=== PATIENT | male | born 1955 | race American Indian/Alaskan Native ===

== ENCOUNTER 2019-03-10 06:20 | Day surgery (SDC) | payer OTHER ==
[2019-03-10] MEDS ORDERED: SODIUM CHLORIDE 0.9% 1000 ML 1,000 ML ONE (06:42)
[2019-03-10] MEDS ORDERED: SODIUM CHLORIDE 0.9% 1000 ML 1,000 ML IV SCH (06:45)
[2019-03-10] MEDS ORDERED: LIDOCAINE MPF (2%) 20 MG/1 ML VIAL 5 ML ONE (07:00)
--- NOTE | 2019-03-10 07:32 | Anesthesia Consultation ---
Anesthesia Consult and Med Hx Date of service: 03/10/19 - Airway Anesthetic Teeth Evaluation: Partials ROM Head & Neck: Adequate Mental/Hyoid Distance: Adequate Mallampati Class: Class II Intubation Access Assessment: Probably Good - Pre-Operative Health Status ASA Pre-Surgery Classification: ASA3 Proposed Anesthetic Plan: MAC - Pulmonary Hx Smoking: No Hx Asthma: No Hx Respiratory Symptoms: No SOB: No COPD: No Home Oxygen Therapy: No Hx Pneumonia: No Hx Sleep Apnea: No - Cardiovascular System Hx Hypertension: Yes Hx Coronary Artery Disease: Yes (stents placed in 2017) Hx Heart Attack/AMI: No Hx Angina: No Hx Percutaneous Transluminal Coronary Angioplasty (PTCA): No Hx Cardia Arrhythmia: No Hx Pacemaker: No Hx Internal Defibrillator: No Hx Valvular Heart Disease: No Hx Heart Murmur: No Hx Peripheral Vascular Disease: No - Central Nervous System Hx Neuromuscular Disorder: No Hx Seizures: No CVA: No Hx Back Pain: No Hx Psychiatric Problems: No - Gastrointestinal Hx Ulcer: No Hx Gastroesophageal Reflux Disease: No - Endocrine Hx Renal Disease: No Hx End Stage Renal Disease: No Hx Cirrhosis: No Hx Liver Disease: No Hx Insulin Dependent Diabetes: No Hx Non-Insulin Dependent Diabetes: No Hx Thyroid Disease: No Hx Hypothyroidism: No Hx Hyperthyroidism: No - Hematic Hx Anemia: No Hx Sickle Cell Disease: No - Other Systems Hx Alcohol Use: No Hx Substance Use: No Hx Cancer: Yes (prostate ca in the past) Hx Obesity: Yes
--- NOTE | 2019-03-10 07:33 | Anesthesia Day of Surgery ---
Anesthesia Day of Surgery - Day of Surgery Patient Examined: Yes Patient H&P Reviewed: Yes Patient is NPO: Yes Cardiac Clearance: Yes
[2019-03-10] MEDS ORDERED: PROPOFOL 200 MG/20 ML VIAL IV ONE ×2 (07:37)
--- NOTE | 2019-03-10 08:41 | Short Stay Summary ---
Short Stay Documentation - Allergies and Medications Current Medications: Allergies No Known Allergies Allergy (Unverified 03/10/19 06:20) Home Medications Medication Instructions Recorded Confirmed Last Taken Type Aspirin EC [Halfprin EC] 81 mg PO QDAY 03/10/19 03/10/19 03/05/19 11:00 History Lisinopril [Zestril TAB] 40 mg PO QDAY 03/10/19 03/10/19 03/10/19 04:30 History Metoprolol Xl [Metoprolol 25 mg PO DAILY 03/10/19 03/10/19 03/10/19 04:30 History SUCCINATE ER TAB] NIFEdipine [Nifedipine ER] 90 mg PO DAILY 03/10/19 03/10/19 03/10/19 04:30 History Rosuvastatin Calcium 40 mg PO DAILY 03/10/19 03/10/19 03/08/19 20:00 History Active Medications Sodium Chloride (Nacl 0.9% 1000 Ml) 1,000 mls @ 50 mls/hr IV DIRECT ROSS Last Admin: 03/10/19 07:46 Dose: 50 mls/hr Documented by: - Brief post op/procedure progress note Date of procedure: 03/10/19 Pre-op diagnosis: Colon cancer screening 2. Anemia Post-op diagnosis: same (EGD: 1. GERD 2. Gastritis 3. Prominent gastric fold 1. Colonoscopy: 1 Diverticulosis 2. Hemorrhoids internal) Procedure: 1. EGD with biopsy 2. Colonoscopy Anesthesia: MAC Findings: as above Surgeon: ELIANE CHA Estimated blood loss: none Pathology: list (1. Duodenum 2. Antrum 3. Body of stomach) Specimen disposition: to lab Condition: stable - Disposition Condition at discharge: Stable Disposition: DC-[id number] TO HOME OR SELFCARE Short Stay Discharge Plan Activity: no restrictions Weight Bearing Status: Full Weight Bearing Diet: regular, low salt Follow up with: LILIANA MCKEON MD [Primary Care Provider] - 7 Days
[2019-03-10 09:08] VITALS: BP 121/67
--- NOTE | 2019-03-10 10:54 | Post Anesthesia Evaluation ---
- Post Anesthesia Evaluation Patient Participated: Yes Airway Patent: Yes Stable Respiratory Function: Yes Nausea/Vomiting: No Temp > 96.8F: Yes Pain Manageable: Yes Adequeate Hydration: Yes Anesthesia Complications: No
== END 2019-03-10 06:21 | disposition home or self-care (01) ==
LOC: GIO 06:20
PROVIDERS: ATTEND Internal Medicine Gastroenterology
DX: D64.9 Anemia, unspecified (principal); K57.30 Diverticulosis of large intestine without perforation or abscess without bleeding; K64.0 First degree hemorrhoids; K29.50 Unspecified chronic gastritis without bleeding; K21.9 Gastro-esophageal reflux disease without esophagitis; K29.60 Other gastritis without bleeding; K29.80 Duodenitis without bleeding; I25.10 Atherosclerotic heart disease of native coronary artery without angina pectoris; I10 Essential (primary) hypertension; E66.9 Obesity, unspecified; Z68.31 Body mass index [BMI] 31.0-31.9, adult; Z79.899 Other long term (current) drug therapy; Z79.82 Long term (current) use of aspirin; Z95.5 Presence of coronary angioplasty implant and graft; Z90.49 Acquired absence of other specified parts of digestive tract; Z98.890 Other specified postprocedural states; Z85.46 Personal history of malignant neoplasm of prostate
CPT/HCPCS: 43239; 45378; 88305; 88342; J2704; J7030